=== PATIENT | female | born 1990 | race Caucasian/White ===

== ENCOUNTER → 2016-07-28 | Outpatient (CLI) | payer MEDICAID ==
[~2016-07-28] MED LIST: Iopamidol 755 MG/ML 500 ML Multipack Bottle IVPUSH STA
--- NOTE | 2016-07-28 14:34 | CT ---
CT of the abdomen and pelvis with and without contrast. HISTORY: Pain TECHNIQUE: Axial CT images were obtained of the abdomen and pelvis before and following administrati on of 48 mL of Isovue-[id number] in the right antecubital fossa without complication. Coronal and sagittal reconstructions obtained. FINDINGS: The lung bases are clear, no pleural effusion. Tiny hepatic cysts are noted. Cholecystectomy clips are present. The pancreas, spleen, and adrenal g lands appear normal. No bulky retroperitoneal lymphadenopathy or abdominal ascites. The kidneys enha nce and function symmetrically without evidence of obstructive uropathy. The large and small bowel are normal in caliber without evidence of obstruction. There is no focal p ericolonic pericecal inflammation. Appendix appears grossly unremarkable. The urinary bladder is nor mal. The uterus and ovaries appear grossly normal. No bulky pelvic lymphadenopathy or free pelvic fl uid. No suspicious osseous abnormalities identified. IMPRESSION: 1. No acute findings demonstrated within the abdomen or pelvis.
== END ==
LOC: MW.DI 09:25
PROVIDERS: ATTEND Internal Medicine
DX: R10.9 Unspecified abdominal pain (principal)
CPT/HCPCS: 74178; Q9967